=== PATIENT | female | born 1965 | race American Indian/Alaskan Native ===

== ENCOUNTER 2020-02-28 05:45 | Emergency (ER) | payer MEDICARE ==
[2020-02-28 06:00] VITALS: BP 183/118
[2020-02-28 07:12] LABS: Basophils % (Auto) 0.4 % (0.0-1.8); Eosinophils % (Auto) 0.8 % (0.0-4.3); Hematocrit 42.3 % (30.3-42.9); Hemoglobin 14.3 gm/dl (10.1-14.3); Lymphocytes # (Auto) 2.4 K/mm3 (1.2-5.4); Lymphocytes % (Auto) 41.1 % (13.4-35.0); Mean Corpuscular HGB Conc 34 % (30-34); Mean Corpuscular Volume 96 fl (79-97); Monocytes # (Auto) 0.8 K/mm3 (0.0-0.8); Monocytes % (Auto) 13.3 % (0.0-7.3); Platelet Count 262 K/mm3 (140-440); Red Blood Count 4.41 M/mm3 (3.65-5.03); Red Cell Distribution Width 13.9 % (13.2-15.2)
[2020-02-28 07:19] LABS: Albumin 4.5 g/dL (3.9-5); Calcium 10.2 mg/dL (8.4-10.2)
[2020-02-28 07:51] LABS: Bacteria,Urine 1+ /HPF (Negative); Bilirubin,Urine NEG (Negative); Blood,Urine NEG (Negative); Color,Urine Yellow (Yellow); Mucus,Urine FEW /HPF; Protein,Urine <15 mg/dL mg/dL (Negative); Urobilinogen,Urine < 2.0 mg/dL (<2.0)
[2020-02-28 07:57] LABS: WBC,Urine > 182.0 /HPF (0.0-6.0)
[2020-02-28] MEDS ORDERED: SODIUM CHLORIDE 0.9% 1000 ML 1,000 ML IV ONE (09:40)
[2020-02-28] MEDS ORDERED: cloNIDine 0.2 MG TAB PO ONE (09:40)
[2020-02-28] MEDS ORDERED: METOCLOPRAMIDE 10 MG/2 ML INJ IV ONE (09:40)
--- NOTE | 2020-02-28 09:43 | Emergency Department Report ---
<TORRI PINTO - Last Filed: 02/29/20 18:33> ED N/V/D HPI - General Chief complaint: Nausea/Vomiting/Diarrhea Stated complaint: VOMITING,THIRSTY Time Seen by Provider: 02/28/20 09:38 Source: patient Mode of arrival: Ambulatory Limitations: No Limitations - History of Present Illness Initial comments: 54-year-old -[place] female presents to the emergency room reporting nausea and vomiting and constipation for the last 3 days. Patient states that she had a bariatric surgery back in July 2019. She states that she is just thirsty and dry mouth. Patient reports some mild abdominal pain in the suprapubic area. Patient reports a past medical history of hypertension. MD complaint: nausea, vomiting Onset/Timin -: days(s) Description of Vomiting: bilious Associated Abdominal Pain: Yes Radiation: none Severity: mild Pain Scale: 2 Quality: aching, sharp Consistency: intermittent Improves with: none Worsens with: none Associated Symptoms: myalgias, loss of appetite, nausea/vomiting, other (Constipation). denies: cough, fever/chills, headaches, dysuria, shortness of breath - Related Data Previous Rx's Medication Instructions Recorded Last Taken Type Nitrofurantoin [place]/M-Cryst 100 mg PO Q12HR 10 Days #20 capsule 02/28/20 Unknown Rx [Macrobid CAP] Allergies Allergy/AdvReac Type Severity Reaction Status Date / Time No Known Allergies Allergy Unverified 02/28/20 06:01 ED Review of Systems Comment: All other systems reviewed and negative ED Past Medical Hx - Past Medical History Previous Medical History?: Yes Hx Hypertension: Yes - Surgical History Past Surgical History?: Yes Additional Surgical History: Gastric Sleeve, CABG, Hernia, C-sec X 3 - Social History Smoking Status: Former Smoker Substance Use Type: Marijuana - Medications Home Medications: Home Medications Medication Instructions Recorded Confirmed Last Taken Type Nitrofurantoin [place]/M-Cryst 100 mg PO Q12HR 10 Days #20 capsule 02/28/20 Unknown Rx [Macrobid CAP] ED Physical Exam - General Limitations: No Limitations General appearance: alert, in no apparent distress - Head Head exam: Present: atraumatic, normocephalic - Eye Eye exam: Present: normal appearance - ENT ENT exam: Present: mucous membranes dry - Neck Neck exam: Present: normal inspection, full ROM - Respiratory Respiratory exam: Present: normal lung sounds bilaterally. Absent: respiratory distress - Cardiovascular Cardiovascular Exam: Present: regular rate, normal rhythm. Absent: systolic mu rmur, diastolic murmur, rubs, gallop - GI/Abdominal GI/Abdominal exam: Present: soft, normal bowel sounds. Absent: distended, tenderness - Extremities Exam Extremities exam: Present: normal inspection - Back Exam Back exam: Present: normal inspection - Neurological Exam Neurological exam: Present: alert, oriented X3, normal gait - Psychiatric Psychiatric exam: Present: normal affect, normal mood - Skin Skin exam: Present: warm, dry, intact, normal color. Absent: rash ED Medical Decision Making - Lab Data Result diagrams: 02/28/20 06:04 02/28/20 06:04 - Medical Decision Making 54-year-old -[place] female presents to the emergency room reporting nausea and vomiting and constipation for the last 3 days. Patient states that she had a bariatric surgery back in July 2019. She states that she is just thirsty and dry mouth. Patient reports some mild abdominal pain in the suprapubic area. Patient reports a past medical history of hypertension. IV normal saline Reglan. Patient has a urinary tract infection. Will give patient Levaquin IV 500 mg. Patient will be discharged Macrobid 100 mg p.o. twice daily for 10 days. Patient is instructed to increase her water intake. Patient be given a prescription for Reglan as needed for nausea and vomiting. Patient is instructed to follow-up with her surgeon if she continues have any difficulties. Follow-up with her primary care provider. ED Disposition Clinical Impression: UTI (urinary tract infection), Nausea and vomiting in adult patient Disposition: TO HOME OR SELFCARE Is pt being admited?: No Does the pt Need Aspirin: No Condition: Stable Instructions: Urinary Tract Infection in Women (ED) Additional Instructions: Urine came positive for urinary tract infection. I would like for you to complete your antibiotics as prescribed. Follow-up with your primary care provider in the next 3 to 5 days for follow-up urine. He can take [id number] Tylenol for pain management. Prescriptions: Nitrofurantoin [place]/M-Cryst [Macrobid CAP] 100 mg PO Q12HR 10 Days #20 capsule Referrals: PRIMARY CARE, [Primary Care Provider] - 3-5 Days Forms: Work/School Release Form(ED) <SEROTOFF,MARSHALL - Last Filed: 03/02/20 00:38> ED Review of Systems ROS: Stated complaint: VOMITING,THIRSTY Other details as noted in HPI ED Course Vital Signs 02/28/20 05:55 Temperature 98.1 F Pulse Rate 88 Respiratory 18 Rate Blood Pressure 183/118 O2 Sat by Pulse 99 Oximetry ED Medical Decision Making - Lab Data Result diagrams: 02/28/20 06:04 02/28/20 06:04 Critical care attestation.: If time is entered above; I have spent that time in minutes in the direct care of this critically ill patient, excluding procedure time. ED Disposition Is pt being admited?: No Does the pt Need Aspirin: No
--- NOTE | 2020-03-01 16:19 | Event Note ---
Date: 03/01/20 I contacted the patient today. She states that she was feeling "completely better." She states she is not having any current issues with nausea, vomiting or diarrhea. She reports that she manage her blood pressure medications, but now has them refilled, including Norvasc, metoprolol, and Ranexa. She indicates she does not take any JESUS inhibitors. I instructed the patient regarding her abnormal laboratory test/renal function we also discussed her hypertension/elevated blood pressure. I recommended the patient have close outpatient follow-up, either returning to the ER today or closely following up with an outpatient primary care doctor for recheck. The patient denies physical pain at this time, and states that she feels "100% better." She also stated that she felt reliable and comfortable following up closely as an outpatient.
== END 2020-02-28 13:56 | disposition home or self-care (01) ==
LOC: ED 05:45
DX: N39.0 Urinary tract infection, site not specified (principal); R11.2 Nausea with vomiting, unspecified; K59.00 Constipation, unspecified; I10 Essential (primary) hypertension; F12.10 Cannabis abuse, uncomplicated; Z98.890 Other specified postprocedural states; Z87.891 Personal history of nicotine dependence; Z79.899 Other long term (current) drug therapy
CPT/HCPCS: 36415; 80053; 81001; 83690; 85025; 87086; 96365; 96366; 96375; 99283; J1956; J2765; J7030